=== PATIENT | male | born 1945 | race Caucasian/White ===

== ENCOUNTER 2019-11-13 03:42 | Emergency (ER) | payer OTHER ==
[~2019-11-13] VITALS: Ht 177.8 cm; Wt 90.7 kg
[2019-11-13 04:46] LABS: BASOPHILS 1.2 % (0.0-2.0); EOSINOPHILS 1.4 % (0.0-3.0); HEMATOCRIT 48.5 % (42.0-52.0); HEMOGLOBIN 16.4 gm/dL (14.0-18.0); LYMPHOCYTES 26.3 % (24.0-44.0); MCH 30.6 pg (26.0-34.0); MCHC 33.8 g/dL (28.0-37.0); MCV 90.5 fL (80.0-100.0); MONOCYTES 8.4 % (1.0-8.0); PLATELET COUNT 214 thou/uL (150-400); POLYS 62.7 % (36.0-66.0); RBC 5.35 mil/uL (4.50-6.00); RDW 14.2 % (10.5-14.5); WBC 11.1 thou/uL (4.0-11.0)
[2019-11-13 04:56] LABS: ANION GAP 9 mmol/L (7-16); BUN 23 mg/dL (7-18); CALCIUM 8.8 mg/dL (8.5-10.1); CHLORIDE 102 mmol/L (98-107); CO2 26 mmol/L (21-32); CREATININE 1.4 mg/dL (0.7-1.3); GLUCOSE 250 mg/dL (74-106); POTASSIUM 3.5 mmol/L (3.5-5.1); SODIUM 137 mmol/L (136-145)
[2019-11-13 05:06] LABS: ALBUMIN 3.5 g/dL (3.4-5.0); DIRECT BILIRUBIN 0.2 mg/dL (<0.1-0.2); SGOT 25 U/L (15-37); SGPT 32 U/L (30-65); TOTAL BILIRUBIN 0.6 mg/dL (0.2-1.0); TOTAL PROTEIN 7.8 g/dL (6.4-8.2); TROPONIN-I <0.06 ng/mL (<0.06)
[2019-11-13] MEDS ORDERED: PROAIR HFA8.5 GM INH (05:48)
[2019-11-13] MEDS ORDERED: CRESTOR10 MG PO (05:48)
[2019-11-13] MEDS ORDERED: ASA81BEC PO (05:48)
[2019-11-13] MEDS ORDERED: CARVEDILOL12.5 MG PO (05:48)
[2019-11-13] MEDS ORDERED: RITALIN LA20 MG PO (05:48)
[2019-11-13] MEDS ORDERED: CYMBALTA30 MG PO (05:49)
[2019-11-13] MEDS ORDERED: ZESTORETIC 20-1 EAC3 PO (05:49)
[2019-11-13] MEDS ORDERED: KLOR-CON 10 ER10 MEQ PO (05:49)
[2019-11-13] MEDS ORDERED: NORCO 10-325 T1 EACH PO (05:50)
[2019-11-13] MEDS ORDERED: METFORMIN HCL500 M3 PO (05:50)
[2019-11-13] MEDS ORDERED: LEXAPRO 10 MG T10 M2 PO (05:50)
[2019-11-13] MEDS ORDERED: ACTOS 30 MG TAB30 M1 PO (05:51)
[2019-11-13] MEDS ORDERED: DESYREL150 MG PO (05:51)
[2019-11-13] MEDS ORDERED: FLOMAX0.4 MG PO (05:51)
[2019-11-13] MEDS ORDERED: SUPER THERAVIT1 EACH PO (05:51)
[2019-11-13] MEDS ORDERED: DILTIAZEM 24HR240 M1 PO (08:12)
--- NOTE | 2019-11-13 08:33 | EKG ---
[facility] [place] [address] ELECTROCARDIOGRAM REPORT Name: ENRICO BETTS Room #: REG M.R.#: [id number] Admission: 11/13/19 Attend Phys: Discharge: Date of : 47 Report #: [id number] THIS REPORT FOR: cc: Fede Gardiner MD, Stany A. MD Lundgren,Ernesto Dunlap MD [facility] ~ THIS REPORT FOR: //name// [facility] ED Test Date: 2019-11-13 Test Time: 03:51:44 Pat Name: ENRICO BETTS Department: Room: Gender: Coat Padder: [facility] : 1945 Requested By: Bibi Cardona Order Number: [id number] MD: Ernesto Rush Measurements Intervals [place] Rate: 138 P: [place]: QRS: 63 QRSD: 131 T: 16 QT: 327 QTc: 496 Interpretive Statements Atrial fibrillation Right bundle branch block Baseline wander in lead(s) V2,V5 No previous ECG available for comparison Electronically Signed On 11-13-2019 8:33:14 CDT by Ernesto Rush [email or web address] <ELECTRONICALLY SIGNED> By: Ernesto Rush MD, [facility] 11/13/19 0833 [id number] Ernesto Rush MD, [facility] /EPI
[2019-11-13 09:00] VITALS: BP 114/78
== END 2019-11-13 09:05 | disposition home or self-care (01) ==
LOC: ER 03:42
PROVIDERS: Emergency Medicine
DX: I48.0 Paroxysmal atrial fibrillation (principal); Z91.14 Patient's other noncompliance with medication regimen; Z79.899 Other long term (current) drug therapy; Z88.0 Allergy status to penicillin; Z91.09 Other allergy status, other than to drugs and biological substances